=== PATIENT | female | born 1995 ===

== ENCOUNTER 2016-10-30 20:28 | Emergency (ER) | payer MEDICAID, OTHER ==
[2016-10-30 20:28] VITALS: BMI 24.5
[2016-10-30 21:13] VITALS: PULSE 72; RESP 18; O2SAT 99
[2016-10-30] MEDS ORDERED: Silver Sulfadiazine 1% Cream (20 gm) TOP STA (21:18)
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
[2016-10-30] MEDS ORDERED: Silver Sulfadiazine 1% Cream (20 gm) ONE (21:29)
[2016-10-30 21:57] VITALS: BP 124/80; TEMP 98
== END 2016-10-30 21:57 | disposition home or self-care (01) ==
LOC: SUPCPDRO 20:28 → C.ER 20:28
DX: T25.121A Burn of first degree of right foot, initial encounter (principal); X19.XXXA Contact with other heat and hot substances, initial encounter